=== PATIENT | female | born 1980 | race American Indian/Alaskan Native ===

== ENCOUNTER 2017-02-19 11:41 | Inpatient (IN) | payer MEDICAID, OTHER ==
[2017-02-19 12:26] LABS: BASO % 0.3 % (0.0-2.0); EOS # 0.5 K/uL (0.0-0.7); EOS % 5.3 % (0.0-4.0); HEMOGLOBIN 10.4 g/dL (11.0-16.0); LYMPH # 2.3 K/uL (1.0-4.3); LYMPH % 26.2 % (20.0-40.0); MEAN CORPUSCULAR HEMOGLOBIN 27.5 pg (27.0-31.0); MEAN CORPUSCULAR HGB CONC 32.3 g/dL (33.0-37.0); MEAN PLATELET VOLUME 7.8 fL (7.2-11.7); MONO # 0.7 K/uL (0.0-0.8); MONO % 7.9 % (0.0-10.0); NEUT # 5.4 K/uL (1.8-7.0); NEUT % 60.3 % (50.0-75.0); RBC 3.79 Mil/uL (3.80-5.20); RED CELL DISTRIBUTION WIDTH 22.3 % (11.5-14.5); WHITE BLOOD COUNT 8.9 K/uL (4.8-10.8)
[2017-02-19 12:31] LABS: HCG,QUALITATIVE URINE NEGATIVE (NEGATIVE)
[2017-02-19 12:36] LABS: URINE BILIRUBIN NEGATIVE (NEGATIVE); URINE BLOOD NEGATIVE (NEGATIVE); URINE CLARITY Hazy (Clear); URINE COLOR Straw (YELLOW); URINE GLUCOSE (UA) NORMAL (Normal); URINE LEUKOCYTE ESTERASE 1+ Leu/uL (Negative); URINE NITRATE NEGATIVE (NEGATIVE); URINE PROTEIN NEGATIVE (NEGATIVE); URINE UROBILINOGEN NORMAL mg/dL (0.2-1.0)
[2017-02-19 12:37] LABS: ALB/GLOB RATIO 0.9 (1.0-2.1); AST/SGOT 78 U/L (14-36); BLOOD UREA NITROGEN 4 mg/dL (7-17); GFR AFRICAN-AMERICAN > 60; GFR NON-AFRICAN AMERICAN > 60
[2017-02-19 12:38] LABS: ALT/SGPT 43 U/L (9-52); CALCIUM 8.9 mg/dl (8.6-10.4)
[2017-02-19 12:41] LABS: BENZODIAZEPINES, UR NEGATIVE (NEGATIVE)
[2017-02-19 12:42] LABS: BARBITURATES, UR NEGATIVE (NEGATIVE)
[2017-02-19 12:45] LABS: SQUAMOUS EPITHIAL 2 /hpf (0-5); URINE BACTERIA FEW (<OCC)
[2017-02-19 12:48] LABS: OPIATES, UR NEGATIVE (NEGATIVE)
[2017-02-19 12:49] LABS: PHENCYCLIDINE, UR NEGATIVE (NEGATIVE)
--- NOTE | 2017-02-19 13:48 | C.PDOC ---
History Of Present Illness Patient is a 37 year old female that presents to the Emergency Department requesting alcohol detox. Patient states that her last drink was this morning. Denies use of any drugs. Otherwise, patient denies any chest pain, shortness of breath, headache, fever, chills, cough, nausea, vomiting, diarrhea, abdominal pain, dizziness, lightheadedness, or any other associated symptoms at this time. Time Seen by Provider: 02/19/17 11:48 Chief Complaint (Nursing): Substance Abuse History Per: Patient History/Exam Limitations: no limitations Onset/Duration Of Symptoms: Gradual Current Symptoms Are (Timing): Still Present Suicide/Self Injury Attempted (Context): None Modifying Factor(s): Alcohol Severity: None Pain Scale Rating Of: 0 Associated Symptoms: denies: Suicidal Thoughts, Suicidal Plan Involuntary Hold By: None Recent travel outside of the [place]: No Past Medical History Reviewed: Historical Data, Nursing Documentation, Vital Signs Vital Signs: Last Vital Signs Temp 98.0 F 02/19/17 14:35 Pulse 81 02/19/17 14:35 Resp 18 02/19/17 14:35 BP 100/62 02/19/17 14:35 Pulse Ox 100 02/19/17 14:55 - Medical History PMH: Depression Denies: Diabetes, Hepatitis, HIV, HTN, Seizures, Sexually Transmitted Disease Family History: States: Unknown Family Hx - Social History Hx Alcohol Use: Yes Hx Substance Use: No - Immunization History Hx Tetanus Toxoid Vaccination: No Hx Influenza Vaccination: No Hx Pneumococcal Vaccination: No Review Of Systems Except As Marked, All Systems Reviewed And Found Negative. Constitutional: Negative for: Fever, Chills Cardiovascular: Negative for: Chest Pain, Palpitations, Edema, Light Headedness Respiratory: Negative for: Cough, Shortness of Breath, Pleuritic Pain Gastrointestinal: Negative for: Nausea, Vomiting, Abdominal Pain, Diarrhea Musculoskeletal: Negative for: Neck Pain, Back Pain Skin: Negative for: Rash, Bruising Neurological: Negative for: Weakness, Numbness, Headache, Dizziness Psych: Negative for: Depression, Suicidal ideation Physical Exam - Physical Exam Appears: Non-toxic, No Acute Distress Skin: Normal Color, Warm, Dry Head: Atraumatic, Normacephalic Eye(s): bilateral: Normal Inspection Oral Mucosa: Moist Neck: Normal ROM, Supple Cardiovascular: Rhythm Regular, No Murmur Respiratory: Normal Breath Sounds, No Rales, No Rhonchi, No Wheezing Gastrointestinal/Abdominal: Soft, No Tenderness Extremity: Bilateral: Atraumatic, Normal ROM Neurological/Psych: Oriented x3, Normal Speech, Normal Cognition ED Course And Treatment - Laboratory Results Result Diagrams: 02/19/17 12:22 02/19/17 12:22 O2 Sat by Pulse Oximetry: 100 (RA) Pulse Ox Interpretation: Normal Medical Decision Making Medical Decision Making: Impression: 37 year old female presents to ED requesting alcohol detox. Denies other drug use. Plan: * Blood work * Urinalysis * Reassess Progress note: On re-eval, pt is resting comfortably, no acute distress. Disposition Counseled Patient/Family Regarding: Studies Performed, Diagnosis - Disposition Disposition: HOSPITALIZED Disposition Time: 15:29 Condition: GUARDED - Clinical Impression Clinical Impression: Alcohol dependence - Scribe Statement The provider has reviewed the documentation as recorded by the Scribe Saman Casey All medical record entries made by the Scribe were at my direction and personally dictated by me. I have reviewed the chart and agree that the record accurately reflects my personal performance of the history, physical exam, medical decision making, and the department course for this patient. I have also personally directed, reviewed, and agree with the discharge instructions and disposition. Decision To Admit - Pt Status Changed To: Hospital Disposition Of: Inpatient - Admit Certification Admit to Inpatient:: After my assessment, the patient will require hospitalization for at least two midnights. This is because of the severity of symptoms shown, intensity of services needed, and/or the medical risk in this patient being treated as an outpatient. - InPatient: Physician Admission Certification: I certify that this patient requires 2 or more midnights of care for the following reason:: needs inpatient detox - . Bed Request Type: Detox Patient Diagnosis: Alcohol dependence
[2017-02-19 14:36] VITALS: RESP 18
--- NOTE | 2017-02-19 16:24 | PCM.BM ---
<Anali Cavazos - Last Filed: 02/19/17 16:21> Treatment Plan Problems - Problems identified on initial assessmt Potential for Alcohol Withdrawal Date Initiated: 02/19/17 Time Initiated: 16:21 Assessment reference: NA Status: Active Priority: 1 Ineffective Coping Date Initiated: 02/19/17 Time Initiated: 16:22 Assessment reference: NA Status: Active Priority: 2 Treatment assets and liabiliti Patient Assests: ADL independent, negotiates basic needs, cognitively intact Patient Liabilities: substance abuse (alcohol dependence) - Milieu Protocol Maintain good personal hygiene: daily Encourage regular showers, daily Remind patient to perform daily oral care Conduct patient checks and document Observation sheet: Q15 minutes Maintain personal safety: every shift Educate patient to report safety concerns to staff, every shift Monitor environment for contraband/sharps Medication safety: Monitor for expected outcome, potential side effects: every shift, Assess barriers to learning: every shift, Assess readiness for medication education: every shift <Daniel Gamble - Last Filed: 02/20/17 21:48> - Diagnosis (1) Alcohol dependence Status: Acute Interventions: 02/20/17 21:49 * Assess 7x/week regarding severity of withdrawal * Educate regarding risks, benefits, side effects and alternatives of medications * Use Motivational Interviewing for abstinence * Use CBT for relapse prevention * Medication management for withdrawal symptoms * Encourage medication assisted treatment * <Magy Martin - Last Filed: 02/21/17 09:21> Family Contact Family involvement: Patient does not wish Family/SO involvement Family contact: Patient agrees to contact - Goals for Treatment Patient goals for treatment: Transition from detox to inpatient at [facility]. Discharge/Continuing Care - Education Needs Education Needs: Patient Medication, Patient Diagnosis/Disease Process, Patient Coping Skills, Patient Anger Management skills, Patient Placement options, Patient Community resources - Discharge Discharge Criteria: No longer exhibiting s/s of withdrawal, Reduction of target symptoms Discharge to:: Substance Abuse Rehab - Treatment Team Participation Patient/Family/SO Statement: 02/21/17 09:20 "I need to go inpatient from here. I know myself". Discussed with Family/SO: No Was Patient/Family/SO present at Treatment Team Meeting: Yes
[2017-02-19] MEDS: Multiple Vitamins Tab PO SCH (17:10)
[2017-02-20] MEDS: Multiple Vitamins Tab PO SCH (09:45)
--- NOTE | 2017-02-20 14:42 | PCM.PSYCH ---
Initial Psychiatric Evaluation - Initial Psychiatric Evaluation Type of Admission: Voluntary Legal Status: Capacity Chief Complaint (in patient's own words): "I want to detox from alcohol." History of Present Illness and Precipitating Events: The pt is seen, chart reviewed, case discussed with staff. Patient is a 37 year old female who presented to the ED requesting alcohol detox. Patient complains of spotty changes in her peripheral vision, but no other wxw sxs are observed. Patient states that her last drink was yesterday morning. Patient states that she drinks 5 nips/day (50mL bottles) of fireball/whiskey and 12 beers /day. The patient states she started drinking at 15-16 years old, and that it became a problem at 17-18 years old. Patient admits to anxiety and depression. Patient denies seizures. Patient denies hallucinations. Patient denies suicidal ideation's. Psychiatric Hx: Patient admits to anxiety and depression for 10 years; states she went to [facility] for help with her anxiety and depression until 2-3 years ago, for unspecified reasons; states she also discontinued trazodone at that time; denies cocaine and heroin; admits to smoking marijuana occasionally; admits to smoking 2 packs/day of tobacco. Social Hx: Single (); lives alone; worked at [employer] for 2-3 months; currently unemployed for the past 6 months. Past Medical Hx: none Family Hx: none Family Psychiatric Hx: Father from alcohol; sister drinks heavily; mother has been clean from alcohol for 18 years. Current Medications: Active Medications Generic Name Dose Route Start Last Admin Trade Name Freq PRN Reason Stop Dose Admin Chlordiazepoxide 25 mg 02/19/17 18:00 02/20/17 14:27 Librium PO 02/23/17 17:59 25 mg Q6 JEANMARIE Administration Taper Chlordiazepoxide 25 mg 02/19/17 15:56 02/20/17 09:45 Librium PO 25 mg Q4H PRN Administration Alcohol Withdrawal Clonidine HCl 0.1 mg 02/19/17 15:56 Catapres PO Q4H PRN Symptoms of alcohol withdrawl Folic Acid 1 mg 02/19/17 16:00 02/20/17 09:45 Folic Acid PO 1 mg DAILY JEANMARIE Administration Gabapentin 100 mg 02/19/17 18:00 02/20/17 14:26 Neurontin PO 100 mg TID JEANMARIE Administration Hydroxyzine HCl 25 mg 02/19/17 15:57 Atarax PO Q4H PRN Anxiety Ibuprofen 600 mg 02/19/17 15:57 Motrin Tab PO Q6H PRN Pain, moderate (4-7) Multivitamins 1 tab 02/19/17 16:00 02/20/17 09:45 Hexavitamin PO 1 tab DAILY JEANMARIE Administration Nicotine 1 patch 02/19/17 17:10 02/20/17 09:45 Nicoderm Cq TD 1 patch DAILY JEANMARIE Administration Thiamine HCl 100 mg 02/19/17 16:00 02/20/17 09:45 Vitamin B1 Tab PO 100 mg DAILY JEANMARIE Administration Trazodone HCl 50 mg 02/19/17 15:56 02/19/17 21:51 Desyrel PO 50 mg HS PRN Administration Insomnia Past Psychiatric History - Past Psychiatric History Previous Treatment History: Intensive Outpatient Pertinent Medical Hx (Current Medical&Sleep Prob, Allergies): Allergies Allergy/AdvReac Type Severity Reaction Status Date / Time No Known Allergies Allergy Verified 02/19/17 11:55 No Known Home Med 02/19/17 Review of Systems - Constitutional Constitutional: absent: Sweats - Neurological Neurological: As Per HPI. absent: Convulsions, Tremor - Psychiatric Psychiatric: As Per HPI, Abnormal Sleep Pattern, Anxiety, Depression. absent: Hallucinations, Suicidal Ideation Mental Status Examination - Personal Presentation Personal Presentation: Looks stated age - Affect Affect: Constricted - Motor Activity Motor Activity: Calm - Reliability in Providing Information Reliability in Providing Information: Good - Speech Speech: Organized - Mood Mood: Depressed, Anxious - Formal Thought Process Formal Thought Process: No Impairment - Obsessions/Compulsions Obsessions: No Compulsions: No - Cognitive Functions Orientation: Person, Place, Situation, Time Sensorium: Alert Attention/Concentration: Attentive Abstract Thinking: [place] Estimate of Intelligence: Average Judgement: Intact, as evidence by: Insight regarding need for hospitalization Memory: Recent intact, as evidence by: Ability to recall events of the day, Remote intact, as evidenced by: Abilit to recall sig. life events - Risk Risk: Withdrawal, Diminished functioning - Strength & Assets Inventory Strength & Assets Inventory: Cooperative - Limitations Limitations: Living alone DSM 5 DX - DSM 5 DSM 5 Diagnosis: alcohol withdrawal alcohol use d/o - severe r/o PIOTR r/o Major Depressive d/o tobacco use d/o - severe cannabis use d/o - moderate - Recommended/Plan of Treatment Treatment Recommendations and Plan of Treatment: Librium detox Gabapentin for augmentation As needed meds and vitamins Attend groups and activities [place] for abstinence and CBT for relapse prevention Support and psychoeducation Consider and encourage MAT Patch given for smoking Refer to after care in rehab Monitor dep and anx sxs - no need for meds for now Support and CBT 33 min Projected ELOS: 02/26/17 Prognosis: Good with tx - Smoking Cessation Smoking Cessation Initiated: Yes
[2017-02-21] MEDS: Multiple Vitamins Tab PO SCH (09:23)
--- NOTE | 2017-02-21 15:03 | PCM.PYCHPN ---
Psychiatric Progress Note - Psychiatric Progress Note Patient seen today, length of contact: 15 min Patient Chief Complaint: "I'm doing better." Problems Identified/Issues Discussed: The pt is seen, chart reviewed, case discussed with staff. The patient reports sleeping well Patient denies N/V/D The patient reports eating well The patient seems less anxious/depressed Support given, CBT and [place] used briefly No new symptoms reported, improving slowly and needs more time No SEs from medications, risks discussed. After care discussed Medication Change: Yes (detox) Medical Record Reviewed: Yes Mental Status Examination - Cognitive Function Orientation: Person, Place, Situation, Time Memory: Intact Attention: WNL Concentration: WNL Association: WNL Fund of Knowledge: WNL - Mood Mood: Neutral - Affect Affect: Broad - Speech Speech: Appropriate - Formal Thought Process Formal Thought Process: No Impairment Goal/Treatment Plan - Goal/Treatment Plan Need for Continued Stay: Discharge may exacerbated symptoms Progress Toward Problem(s) and Goals/Treatment Plan: Librium detox Gabapentin for augmentation As needed meds and vitamins Attend groups and activities [place] for abstinence and CBT for relapse prevention Support and psychoeducation Consider and encourage MAT Sign up for IOP for rehab + AA meetings Search for PCP Continue to monitor dep and anx sxs Support and CBT Estimated Date of D/C: 02/23/17
[2017-02-22] MEDS: Multiple Vitamins Tab PO SCH (09:35)
--- NOTE | 2017-02-22 15:34 | PCM.PYCHPN ---
Psychiatric Progress Note - Psychiatric Progress Note Patient seen today, length of contact: 16 min Patient Chief Complaint: "I'm feeling well." Problems Identified/Issues Discussed: The pt is seen, chart reviewed, case discussed with staff. The patient reports sleeping well Support given, CBT and [place] used briefly No new symptoms reported, improving slowly and needs more time No SEs from medications, risks discussed. After care discussed; patient wants to go to outpatient program in [place]. Medication Change: Yes (detox) Medical Record Reviewed: Yes Mental Status Examination - Cognitive Function Orientation: Person, Place, Situation, Time Memory: Intact Attention: WNL Concentration: WNL Association: WNL Fund of Knowledge: WNL - Mood Mood: Neutral - Affect Affect: Broad - Speech Speech: Appropriate - Formal Thought Process Formal Thought Process: No Impairment Goal/Treatment Plan - Goal/Treatment Plan Need for Continued Stay: Discharge may exacerbated symptoms Progress Toward Problem(s) and Goals/Treatment Plan: Librium detox, taper Gabapentin for augmentation As needed meds and vitamins Attend groups and activities [place] for abstinence and CBT for relapse prevention Support and psychoeducation Consider and encourage MAT Continue to monitor dep and anx sxs Support and CBT Search for PCP After care outpatient program in [place], [place]. Estimated Date of D/C: 02/23/17
--- NOTE | 2017-02-23 08:46 | PCM.PYCHDC ---
Mental Status Examination - Mental Status Examination Orientation: Person, Place, Situation, Time Memory: Intact Mood: Neutral Affect: Broad Speech: Appropriate Attention: WNL Concentration: WNL Association: WNL Fund of Knowledge: WNL Formal Thought Process: No Impairment Suicidal Ideation: No Current Homicidal Ideation?: No Discharge Summary - Discharge Note Reason for Hospitalization: Alcohol detox Consultations:: List each consultation separately and include: 1. Reason for request. 2. Findings. 3. Follow-up Summary of Hospital Course include:: 1. Description of specific treatment plan utilized for patients during their course of treatmen. 2. Summarize the time- course for resolution of acute symptoms and/or regressed behaviors. 3. Describe issues identified and worked on during hospitalization. 4. Describe medication utilized. 5. Describe medical problems identified and treated. 6. Reassessment of suicide risk Summary of Hospital Course: The pt was admitted and started on treatment for alcohol detox with psychotherapy, support, psychoeducation and medications. [place] and CBT used. The pt attended groups and activities, as well as milieu therapy. All the risks and benefits of medications are discussed and the patient understood and agreed. The pt improved with the treatments provided. After care discussed with the patient. She will attend IOP at [facility] in [place], but she also considers getting vivitrol. - Final Diagnosis (DSM 5) Condition upon Discharge: GOOD DSM 5: Alcohol withdrawal Alcohol use d/o - severe tobacco use d/o - severe cannabis use d/o - moderate Anxiety d/o - unspecified Disposition: HOME/ ROUTINE Follow-up Treatment Plan: Continue medications after discharge. Follow after care plan as discussed. Use relapse prevention skills Stay away from triggers and alcohol Attend outpatient program and AA meetings Prescriptions/Medication Reconciliation: Gabapentin [Neurontin] 100 mg PO TID #90 cap traZODone [Desyrel] 50 mg PO HS PRN #30 tab PRN Reason: Insomnia - Smoking Cessation Smoking Cessation Medication prescribed: No - Antipsychotic Medications Pt discharged on 2 or more routine antipsychotic medications: No
[2017-02-23] MEDS: Multiple Vitamins Tab PO SCH (09:21)
[2017-02-23 09:23] VITALS: BP 116/80; PULSE 85; TEMP 98.3; O2SAT 99
== END 2017-02-23 12:50 | DRG 751 ==
LOC: C.ER 11:41 → C.7D 15:52
PROVIDERS: ADMIT Psychiatry & Neurology Psychiatry; ATTEND Psychiatry & Neurology Psychiatry
DX: F10.239 Alcohol dependence with withdrawal, unspecified (principal); F32.9 Major depressive disorder, single episode, unspecified; F41.9 Anxiety disorder, unspecified; Z72.0 Tobacco use; F12.90 Cannabis use, unspecified, uncomplicated